=== PATIENT | female | born 1980 | race Caucasian/White ===

== ENCOUNTER 2023-05-30 03:12 | Emergency (ER) | payer OTHER | END 2023-05-30 05:19 | disposition home or self-care (01) | LOC: JP.ED 03:12 | DX: M79.605 Pain in left leg (principal); J45.909 Unspecified asthma, uncomplicated; Z88.6 Allergy status to analgesic agent; Z79.899 Other long term (current) drug therapy | CPT/HCPCS: 36415; 73590-26-LT; 73590-LT; 85379; 99283 ==